=== PATIENT | male | born 1960 | race Caucasian/White ===

== ENCOUNTER → 2023-08-14 08:18 | Outpatient (REF) | payer MEDICARE, OTHER, SELFPAY | LOC: RAD 08:18 | PROVIDERS: ATTENDING PHYSICIAN Surgery; FAMILY PHYSICIAN Nurse Practitioner Adult Health | DX: K43.5 Parastomal hernia without obstruction or gangrene (principal) | CPT/HCPCS: 74177; Q9967 ==

== ENCOUNTER 2024-01-21 06:13 | Inpatient (IN) | payer MEDICARE, OTHER, SELFPAY ==
[2024-01-09 08:47] LABS: Hematocrit 49.5 % (39.0-52.0); Hemoglobin 17.2 g/dL (13.0-18.0); Mean Corp Hgb Conc. 34.7 g/dL (33.0-37.0); Mean Corpuscular Hgb 31.4 pg (27.0-31.0); Mean Corpuscular Volume 90.3 fL (80.0-94.0); Mean Platelet Volume 10.1 fL (7.4-10.4); Platelet Count 159 10^3/uL (130-400); Red Blood Cell Count 5.48 10^6/uL (4.70-6.10); Red Cell Dist. Width 13.5 % (11.5-14.5); White Blood Cell Count 7.2 10^3/uL (4.8-10.8)
[2024-01-09 09:59] LABS: ALT (SGPT) 69 U/L (0-50); AST (SGOT) 47 U/L (17-59); Albumin 4.9 g/dl (3.5-5.0); Alkaline Phosphatase 54 U/L (38-126); Blood Urea Nitrogen 23 mg/dl (9-20); Calcium 9.4 mg/dl (8.4-10.2); Carbon Dioxide 22 mmol/L (22-30); Chloride 105 mmol/L (98-107); Glucose 103 mg/dl (70-99); Potassium 4.3 mmol/L (3.5-5.1); Sodium 142 mmol/L (135-145); Total Bilirubin 1.5 mg/dl (0.2-1.3); Total Protein 7.8 g/dl (6.3-8.2); eGFR > 60.00
[2024-01-09 13:16] VITALS: BMI 38.9
[2024-01-21] VITALS (15 sets, daily range): BP systolic 129–147; BP diastolic 81–95; BMI 38.9
[2024-01-21] MEDS: TYLENOL 1000 MG PO (06:47)
[2024-01-21] MEDS: ENTEREG 12 MG PO (06:47)
--- NOTE | 2024-01-21 06:52 | HP.FOC2 ---
Focused History & Physical
Chief Complaint
HPI:
Chief Complaint: Parastomal hernia
HPI / Indication for Planned Procedure: Patient is a 63-year-old male who has a history of Crohn's proctocolitis having undergone colectomy with a permanent end ileostomy. He has also had a history of a open retrorectus mesh repair incisional
hernia at his lower midline incision with takedown of mucous fistula and completion sigmoidectomy September 2022. Right sided parastomal hernia at his ileostomy has been increasing in size. Presents today for scheduled operative correction.
Relevant Past Medical History: Other (Hypertension, history of nephrolithiasis, depression, hypocalcemia, vitamin D deficiency, history of Crohn's proctocolitis)
Relevant Social History: Negative
Relevant Family History: Negative
Relevant Past Surgical History: Positive for (Kidney stones, subtotal colectomy, takedown of mucous fistula and sigmoidectomy, incisional hernia repair with mesh,)
Review of Systems
Review of Pertinent Systems: All Systems Negative
Medication
See Medication form for detailed medications: Yes
Medication List (including Herbals & OTC):
qprshnxbpogd-yxgjogfs-ufikru tablet 1 tab PO DAILY Supplement 03/24/22
metoprolol tartrate 25 mg tablet 25 mg PO BID #60 tabs 05/03/22
acetaminophen 325 mg tablet 650 mg (2 x 325 mg) PO Q4HPRN PRN mild pain #1 tab 10/14/22
ibuprofen 200 mg tablet 400 - 600 mg (2 - 3 x 200 mg) PO Q6HPRN PRN moderate pain #1 tab 10/14/22
Medications Reviewed: Yes
Allergies and Reactions
Patient has Allergies: Yes
Noted Allergies and Reactions:
Allergy/AdvReac Type Severity Reaction Status Date / Time
shellfish derived Allergy Hives Verified 01/21/24 06:39
Pertinent Physical Exam
All Other Systems: Negative
Head/Neck: Normal
Lungs: Normal
Heart: Normal
Abdomen: Other (Right sided ileostomy with parastomal hernia. Midline laparotomy surgical scar well-healed)
Extremities: Normal
Neurological: Normal
Diagnosis / Assessment
63-year-old male presenting for operative correction symptomatic parastomal hernia
Plan / Procedure
Robotic assisted laparoscopic repair of parastomal hernia with mesh
Anesthesia/Sedation to be done by Anesthesia Provider: Yes
--- NOTE | 2024-01-21 06:55 | W.SUR.PREOP ---
Pre-Operative Surgical Note
-
I have examined this patient prior to the performance of the scheduled procedure.
The patient's condition is unchanged from the time of the current History and
Physical and the patient is able to undergo the scheduled procedure.
--- NOTE | 2024-01-21 14:48 | W.IMMPOSTOP ---
Surgical Immed Post Op Note
-
Primary Surgeon: Yariel
Assisting Surgeon: Jody PRATER
Pre-op Diagnosis: Parastomal hernia
Post-op Diagnosis: Parastomal hernia; extensive adhesions
Procedure Performed: Robotic assisted laparoscopic extensive lysis of adhesions
Robotic assisted laparoscopic mesh repair parastomal hernia (IPUM Sugarbaker technique)
Anesthesia Type: GETA +0.25% Marcaine
Specimen / Cultures: None/none
Estimated Blood Loss: 30 mL
Complications: None immediate
Operative Findings: Extensive adhesions, essentially frozen abdomen except for left lateral abdominal wall area which allowed for initial placement of three 8 mm robotic trocars. Abdominal wall adhesiolysis encompassed 4 hours of operative time.
Subsequent repair of parastomal hernia at permanent end ileostomy site fascial defect approximately 5 to 6 cm vertically. Lateralization of ileostomy mesentery distal ileum. Mobilized posterior sheath/peritoneum to cover ileal serosa with
peritoneum in an effort to minimize potential mesh exposure. Intraperitoneal underlay mesh repair, Sugarbaker technique utilizing Ventralight ST mesh 18 x 23 cm oriented vertically. Mesh secured with 2-0 PDS strata fix circumferentially and around
lateralized distal ileum going to end ileostomy.
[2024-01-21] MEDS: DILAUDID 0.25 MG IV (16:09)
[2024-01-21] MEDS: LR 1000 IV (18:07)
--- NOTE | 2024-01-21 18:20 | PTCARENOTE ---
pt admitted to room 2105 at 1715. pt arrived via bed, easily arousable but drowsy. oriented to room, call cardenas, bed controls and plan of care with verbalized understanding. admission database and assessment completed as documented. tolerating
sips of water and ice chips. O2 4L NC maintained, continuous pulse ox placed. offering no c/o nausea or pain. care ongoing.
[2024-01-21] MEDS: LOPRESSOR 25 MG PO (20:31)
[2024-01-22] MEDS: LR 1000 IV (02:32)
[2024-01-22] MEDS: TORADOL 10 MG IV (02:36)
[2024-01-22 02:55] VITALS: BP 139/83
[2024-01-22 06:41] LABS: Hematocrit 41.7 % (39.0-52.0); Hemoglobin 14.6 g/dL (13.0-18.0); Mean Corpuscular Hgb 31.7 pg (27.0-31.0); Mean Corpuscular Volume 90.5 fL (80.0-94.0); Mean Platelet Volume 10.2 fL (7.4-10.4); Platelet Count 159 10^3/uL (130-400); Red Blood Cell Count 4.61 10^6/uL (4.70-6.10); Red Cell Dist. Width 13.6 % (11.5-14.5); White Blood Cell Count 12.9 10^3/uL (4.8-10.8)
[2024-01-22 07:18] LABS: Blood Urea Nitrogen 19 mg/dl (9-20); Calcium 8.2 mg/dl (8.4-10.2); Carbon Dioxide 25 mmol/L (22-30); Chloride 104 mmol/L (98-107); Estimated Creatinine Clearance 91 ml/min; Glucose 114 mg/dl (70-99); Sodium 141 mmol/L (135-145); eGFR > 60.00
--- NOTE | 2024-01-22 07:22 | W.PN.GS2 ---
Today's Communication / Plan
-
`
Assessment / Plan
-
Assessment: 63 y/o male POD#1 s/p RAL extensive DYAN/parastomal hernia repair with mesh (Sugarbaker IPUM)
AFVSS
doing well post op
AM labs look well
Plan: multimodal analgesic options
full liquid diet today, monitoring return of GI function post op
if leta PO cap IVFs
home metoprolol
ambulate/OOBTC/encourage IS use and wean postop supplemental oxygen
SCDs/heparin->lovenox/ambulation for post op VTEp
dipso ->probable dc in 24-36hrs if pain controlled, ambulating and adequate GI function to tolerate PO intake
Subjective Data
-
Date of Service: January 22, 2024
pt seen and examined
post op pain controlled
no nausea/vomiting
ostomy functioning
feels a bit distended
Objective Data
-
Intake and Output
01/21/24 01/22/24 01/23/24
06:59 06:59 06:59
Intake Total 1710 / 1710
Output Total 1650 / 1700 50 / 50
Balance 60 / 10 -50 / -50
Intake:
Oral fluids 120 / 120
IV fluids (Total) 1590 / 1590
Normosal 150 / 150
Output:
Liquid stool amount 50 / 50
Ileostomy 50 / 50
Urine, Curtis 1650 / 1650
Vital Signs
Temp Pulse Resp BP Pulse Ox
98.1 F 92 20 139/83 94
01/22/24 02:55 01/22/24 02:55 01/22/24 02:55 01/22/24 02:55 01/22/24 02:55
Lab Results
01/22/24 04:57
01/22/24 04:57
Calcium 8.2 mg/dl (8.4-10.2) L 01/22/24 04:57
Total Bilirubin 1.5 mg/dl (0.2-1.3) H 01/09/24 08:06
AST 47 U/L (17-59) 01/09/24 08:06
ALT 69 U/L (0-50) H 01/09/24 08:06
Alkaline Phosphatase 54 U/L (38-126) 01/09/24 08:06
Total Protein 7.8 g/dl (6.3-8.2) 01/09/24 08:06
Albumin 4.9 g/dl (3.5-5.0) 01/09/24 08:06
Physical Exam
-
NAD AAOx3
ABD: softly distended, mild TTP, no R/R/G
incisions with glue dressings
RLQ ostomy pink mucosa +air/enteric contents
no seroma at hernia repair site, no recurrence
[2024-01-22 08:05] VITALS: BP 130/74
[2024-01-22] MEDS: ENTEREG 12 MG PO (08:55)
[2024-01-22] MEDS: LOPRESSOR 25 MG PO (08:56)
[2024-01-22] MEDS: HEPARIN 5000 UNITS SC (08:59)
[2024-01-22 11:00] VITALS: BP 125/79
--- NOTE | 2024-01-22 12:32 | CM ---
Met with pt and his at bedside
Pt reports he lives in a ranch style home with his ; 2 steps to enter
Independent at baseline, active, driving
DME - none
SNF - no past hx
HH - [facility] in past
Has ride at discharge
PCP - Morelia Hodge
Pharm - [facility] on [address]
Discussed IMM
Plan - anticipate home no needs when medically ready
[2024-01-22 15:00] VITALS: BP 135/76
--- NOTE | 2024-01-22 15:20 | W.PN.SURGUPD ---
Surgical Update
Surgical Update
Patient seen in follow-up. at bedside.
States he has had a comfortable day. Postoperative pain minimal while lying down and resting. No nausea. Has emptied his ileostomy a couple times a day. Tolerating liquid diet without nausea or vomiting. No worsening abdominal bloating or
distention.
AFVSS
ABD: Softly distended, mild tenderness. Ostomy functioning.
Assessment/plan: Stable for discharge home
DC instructions reviewed with patient and .
--- NOTE | 2024-01-22 15:25 | W.DS.TRANS ---
DC Summary - Report Clerk
-
Discharge Instructions:
Sleep Apnea Risk High
Discharge Diagnosis/Procedures Parastomal hernia; Robotic assisted laparoscopic
lysis of adhesions and repair of parastomal
hernia with mesh
Diet As tolerated,Regular
Additional Diets Smaller meals/portions initially after surgery
as abdominal bloating and distention may be
common for the first few days
Activity No strenuous activity
Additional Activity No lifting over 20 pounds for 6 weeks postop
Driving Restrictions No driving 2 to 3 days or if using narcotics
Bathing Restrictions OK to Shower
Wound Care Glue at surgical sites typically peels off in 2
to 3 weeks
Instructions:
Stand-Alone Forms:
Changes to Home Medications: No
Discharge Medications:
DC Medications w/original date entered in [facility]
esujoozbmcwi-hmtfxrdu-rgrgrf tablet 1 tab PO DAILY Supplement 03/24/22
metoprolol tartrate 25 mg tablet 25 mg PO BID #60 tabs 05/03/22
acetaminophen 325 mg tablet 650 mg (2 x 325 mg) PO Q4HPRN PRN mild pain #1 tab 10/14/22
ibuprofen 200 mg tablet 400 - 600 mg (2 - 3 x 200 mg) PO Q6HPRN PRN moderate pain #1 tab 10/14/22
oxycodone 5 mg tablet 5 mg PO Q4HPRN PRN breakthrough/severe pain #7 tabs 01/22/24
Home Medication Changes
Pending Results: No
== END 2024-01-22 16:16 | disposition home or self-care (01) | DRG 337 ==
LOC: 2 SOUTH 06:13
PROVIDERS: ADMITTING PHYSICIAN Surgery; FAMILY PHYSICIAN Nurse Practitioner Adult Health
PROC: 0DNW4ZZ Release Peritoneum, Percutaneous Endoscopic Approach (ICD-10-PCS; 2024-01-21)
PROC: 8E0W4CZ Robotic Assisted Procedure of Trunk Region, Percutaneous Endoscopic Approach (ICD-10-PCS; 2024-01-21)
PROC: 0WUF4JZ Supplement Abdominal Wall with Synthetic Substitute, Percutaneous Endoscopic Approach (ICD-10-PCS; 2024-01-21)
DX: K43.5 Parastomal hernia without obstruction or gangrene (principal); K66.0 Peritoneal adhesions (postprocedural) (postinfection)
CPT/HCPCS: 36415; 80048; 80053; 85027; 93005; C1713; J1335

== ENCOUNTER 2024-05-30 06:13 | Day surgery (SDC) | payer MEDICARE, OTHER, SELFPAY | END 2024-05-30 09:36 | disposition home or self-care (01) | LOC: GI 06:13 | PROVIDERS: ATTENDING PHYSICIAN Specialist | DX: K51.00 Ulcerative (chronic) pancolitis without complications (principal); K63.89 Other specified diseases of intestine | CPT/HCPCS: 45331; 88305 ==

== ENCOUNTER → 2024-07-08 10:02 | Outpatient (REF) | payer MEDICARE, OTHER, SELFPAY | LOC: RAD 10:02 | PROVIDERS: ATTENDING PHYSICIAN Specialist; FAMILY PHYSICIAN Registered Nurse | DX: R79.89 Other specified abnormal findings of blood chemistry (principal) | CPT/HCPCS: 76700 ==

== ENCOUNTER → 2024-11-11 14:02 | Outpatient (REF) | payer MEDICARE, OTHER, SELFPAY | LOC: MRI 14:02 | PROVIDERS: ATTENDING PHYSICIAN Specialist; FAMILY PHYSICIAN Registered Nurse | DX: K76.0 Fatty (change of) liver, not elsewhere classified (principal) | CPT/HCPCS: 74181; 76391 ==